=== PATIENT | male | born 1990 | race Caucasian/White ===

== ENCOUNTER 2019-11-24 06:40 | Day surgery (SDC) | payer BC ==
[~2019-11-24 06:40] MED LIST: Lactated Ringers 1,000 ML IV SCH
[2019-11-24] MEDS ORDERED: fentaNYL 100 MCG/2 ML SDV ONE (07:05)
[2019-11-24] MEDS ORDERED: Midazolam 1 MG/ML 2 ML SDV ONE (07:05)
[2019-11-24] MEDS ORDERED: Lidocaine 2% 5 ML SDV ONE (07:05)
[2019-11-24] MEDS ORDERED: Propofol 200 MG/20 ML SDV ONE (07:05)
--- NOTE | 2019-11-24 07:22 | PCM.PREANE ---
Preanesthetic Assessment - Anesthesia/Transfusion/Family Hx Anesthesia History: Prior Anesthesia Without Reaction Family History of Anesthesia Reaction: No Transfusion History: No Prior Transfusion(s) Intubation History: Unknown - Review of Systems General: No Symptoms Pulmonary: No Symptoms Cardiovascular: No Symptoms Gastrointestinal: No Symptoms Neurological: No Symptoms Other: Reports: None - Physical Assessment Height: 5 ft 6 in Weight: 67.585 kg ASA Class: 2 Mental Status: Alert & Oriented x3 Airway Class: Mallampati = 1 Dentition: Reports: Normal Dentition Thyro-Mental Finger Breadths: 3 Mouth Opening Finger Breadths: 3 ROM/Head Extension: Full Lungs: Clear to Auscultation, Normal Respiratory Effort Cardiovascular: Regular Rate, Regular Rhythm - Allergies Allergies/Adverse Reactions: Allergies Allergy/AdvReac Type Severity Reaction Status Date / Time No Known Allergies Allergy Verified 11/21/19 09:13 - Blood Blood Available: No - Anesthesia Plan Pre-Op Medication Ordered: None - Acknowledgements Anesthesia Type Planned: MAC Pt an Appropriate Candidate for the Planned Anesthesia: Yes Alternatives and Risks of Anesthesia Discussed w Pt/Guardian: Yes Pt/Guardian Understands and Agrees with Anesthesia Plan: Yes PreAnesthesia Questionnaire HEENT History: Reports: None Cardiovascular History: Reports: None Respiratory History: Reports: Asthma, Other (See Below) Other Respiratory History: childhood asthma Gastrointestinal History: Reports: GERD, Other (See Below) (h/o gastric ulcer) Genitourinary History: Reports: None, Other (See Below) (h/o gastric ulcer) Musculoskeletal History: Reports: None Neurological History: Reports: Other (See Below) (h/o migraines) Psychiatric History: Reports: Anxiety, Depression Endocrine/Metabolic History: Reports: None Hematologic History: Reports: None Immunologic History: Reports: None Oncologic (Cancer) History: Reports: None Dermatologic History: Reports: None - Past Surgical History Head Surgeries/Procedures: Reports: None HEENT Surgical History: Reports: None Cardiovascular Surgical History: Reports: None Respiratory Surgical History: Reports: None GI Surgical History: Reports: None Male Surgical History: Reports: None Endocrine Surgical History: Reports: None Neurological Surgical History: Reports: None Musculoskeletal Surgical History: Reports: Other (See Below) Other Musculoskeletal Surgeries/Procedures:: 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) Oncologic Surgical History: Reports: None - SUBSTANCE USE Tobacco Use Within Last Twelve Months: Pipe (twice a week) Recreational Drug Type: Reports: Marijuana/Hashish Recreational Drug Last Use: 11/20/19 - HOME MEDS Home Medications: Home Meds Escitalopram Oxalate 10 mg PO DAILY 11/21/19 [History] Lansoprazole [Prevacid] 15 mg PO BID 11/21/19 [History] Sucralfate 1 gm PO QID 11/21/19 [History] - CURRENT (IN HOUSE) MEDS Current Meds: Current Medications Lactated Ringer's (Ringers, Lactated) 1,000 mls @ 125 mls/hr IV ASDIRECTED JASON Discontinued Medications Fentanyl (Sublimaze) Confirm Administered Dose 100 mcg .ROUTE .STK-MED ONE Stop: 11/24/19 07:06 Lidocaine (Xylocaine-Mpf 2%) Confirm Administered Dose 5 ml .ROUTE .STK-MED ONE Stop: 11/24/19 07:06 Midazolam HCl (Versed 1 Mg/Ml) Confirm Administered Dose 2 mg .ROUTE .STK-MED ONE Stop: 11/24/19 07:06 Propofol (Diprivan 20 Ml) Confirm Administered Dose 400 mg .ROUTE .STK-MED ONE Stop: 11/24/19 07:06
[2019-11-24] MEDS ORDERED: Glycopyrrolate 0.2 MG/ML SDV ONE (07:48)
[2019-11-24] MEDS ORDERED: Dexamethasone 4 MG/ML 5 ML MDV ONE (08:07)
[2019-11-24] MEDS ORDERED: Succinylcholine/Sod PF 100 MG/5 ML SYRINGE IV ONE (08:19)
--- NOTE | 2019-11-24 08:28 | PCM.OPNOTE ---
- General Post-Op/Procedure Note Date of Surgery/Procedure: 11/24/19 Operative Procedure(s): egd w bx Findings: see dict [id number] Pre Op Diagnosis: gerd Post-Op Diagnosis: gerd and gastritis Anesthesia Technique: General ET Tube Primary Surgeon: Yared Schumacher Pathology: egd bx Complications: None Condition: Good
--- NOTE | 2019-11-24 08:55 | PCM.POSTAN ---
POST ANESTHESIA ASSESSMENT - MENTAL STATUS Mental Status: Alert, Oriented - VITAL SIGNS Vital Signs: Last Vital Signs Temp 36.3 C 11/24/19 08:29 Pulse 65 11/24/19 08:49 Resp 11 L 11/24/19 08:49 BP 108/65 11/24/19 08:49 Pulse Ox 94 L 11/24/19 08:49 - RESPIRATORY Respiratory Status: Respiratory Rate WNL, Airway Patent, O2 Saturation Stable - CARDIOVASCULAR CV Status: Pulse Rate WNL, Blood Pressure Stable - GASTROINTESTINAL GI Status: No Symptoms - PAIN Pain Score: 0 - POST OP HYDRATION Hydration Status: Adequate & Stable - OBSERVATIONS Free Text/Narrative:: No anesthesia problems
--- NOTE | 2019-11-24 10:56 | PCM48HPAN ---
Post Anesthesia Note - EVALUATION WITHIN 48HRS OF ANESTHETIC Vital Signs in Normal Range: Yes Patient Participated in Evaluation: Yes Respiratory Function Stable: Yes Airway Patent: Yes Cardiovascular Function Stable: Yes Hydration Status Stable: Yes Pain Control Satisfactory: Yes Nausea and Vomiting Control Satisfactory: Yes Mental Status Recovered: Yes Vital Signs: Last Vital Signs Temp 36.3 C 11/24/19 08:29 Pulse 65 11/24/19 08:49 Resp 11 L 11/24/19 08:49 BP 108/65 11/24/19 08:49 Pulse Ox 94 L 11/24/19 08:49 - COMMENTS/OBSERVATIONS Free Text/Narrative:: No anesthesia problems
--- NOTE | 2019-11-24 13:11 | OR ---
SURGEON: Yared Schumacher MD DATE OF PROCEDURE: 11/24/2019 PREOPERATIVE DIAGNOSIS: Acid reflux. POSTOPERATIVE DIAGNOSIS: Acid reflux. PROCEDURE PERFORMED: EGD with biopsy. COMPLICATIONS: None. DESCRIPTION OF PROCEDURE: EGD: The patient was taken to the endoscopy room, and with the AIR EXPORT AGENT, Diprivan was administered. A well-lubricated EGD scope was gently inserted through the oropharynx, down the esophagus, passing through the gastroesophageal junction, into the stomach. The mucosa was examined upon the passage. Any etiology will be noted. Once in the stomach, we continued to advance to the distal antrum, passed through the pylorus into the second portion of the duodenum. Again, the mucosa was examined for any abnormality and etiology. The scope was then retrieved back to the stomach and then retroflexed to look at the fundus of the stomach. If a biopsy was indicated, we will biopsy the antrum, body, and gastroesophageal junction. The air will be sucked out while the scope is retrieved to reduce the patient's discomfort. The patient tolerated the procedure well. There were no intraoperative complications. Dr. Schumacher was present through the whole procedure. Prior to surgery, a time-out had been called, the patient identified, procedure identified and antibiotic administered. FINDINGS: 1. The patient had some spasm during the procedure and was intubated before procedure could be performed. 2. The patient had a lot of food in his stomach and some in the esophagus and in fact, a melon was right below at the beginning of the oropharynx, so that made the procedure quite a challenge. The food in the stomach almost occluded the pylorus. With some difficulty, I was able to get into the duodenum. The patient does not have any obvious stricture or inflammation at the beginning of the esophagus. Oropharynx was not able to be observed clearly because food particle was occluding. Distal esophagus, GE junction at 40 shows a flame-like structure of mucosa change, suggestive of moderate acid reflux and then we encountered a lot of food particles in the stomach. Rugae looked normal. No blood, no bile, but tremendous amount of food and almost completely occluded pylorus. With a little maneuver, I was able get into the duodenum. Duodenum looked fine, but with lymphatic showing a piece of white color, suggestive of recent eating. Retroflexed to look at the fundus of the stomach. There was no hiatal hernia. Biopsy done at antrum, body, GE junction at 40, and sucked out the gas while scope pulling out. The whole procedure, the patient was intubated. The patient probably would benefit from a repeat EGD in 3 to 6 months as the examination was compromised because of the presence of food. DOUG / CORINA /[id number]
== END 2019-11-24 11:00 | disposition home or self-care (01) ==
LOC: MW.SDS 06:40
PROVIDERS: ATTEND Surgery
DX: K29.50 Unspecified chronic gastritis without bleeding (principal); K21.0 Gastro-esophageal reflux disease with esophagitis; Z20.828 Contact with and (suspected) exposure to other viral communicable diseases; B96.81 Helicobacter pylori [H. pylori] as the cause of diseases classified elsewhere; F17.210 Nicotine dependence, cigarettes, uncomplicated; J45.909 Unspecified asthma, uncomplicated; F41.9 Anxiety disorder, unspecified; F32.9 Major depressive disorder, single episode, unspecified
CPT/HCPCS: 43239; J0330; J1100; J2001; J2250; J2704; J3010; J3490; J7120; 88305; 88312